=== PATIENT | male | born 1970 | race Hispanic/Latino ===

== ENCOUNTER 2019-12-22 12:15 | Emergency (ER) | payer SELFPAY ==
--- NOTE | 2019-12-22 13:58 | EDPHYS ---
Physician Documentation [facility] Name: Pradeep Maldonado Age: 49 yrs Sex: Male : 1970 Arrival Date: 12/22/2019 Time: 12:17 Bed 17 Private MD: ED Physician Sahil Cash HPI: 12/21 13:43 This 49 yrs old Male presents to ER via Ambulatory with complaints of Facial scott Swelling, Blurred Vision. 13:43 The patient is experiencing burning, cant close right lid. Onset: The symptoms/episode scott began/occurred 5 day(s) ago. Duration: the symptoms are continuous. Aggravated by nothing. Alleviated by nothing. Associated signs and symptoms: Pertinent positives: None. The patient presents to the emergency department with paresthesias of the right side of the face, that is mild, a vision problem, right burning and red. Context: occurred at an unknown location. Associated signs and symptoms: Pertinent positives: paresthesias, weakness, right face weakness, right eye burning. Historical: - Allergies: 13:02 No Known Allergies; ph - PMHx: 13:02 None; ph - PSHx: 13:02 foot; ph - Immunization history:: Adult Immunizations unknown. - Social history:: Smoking status: Patient/guardian denies using tobacco, the patient reports quitting approximately 15 years ago. ROS: 13:46 Constitutional: Negative for fever, chills, and weight loss, ENT: Negative for injury, scott pain, and discharge, Neck: Negative for injury, pain, and swelling, Cardiovascular: Negative for chest pain, palpitations, and edema, Respiratory: Negative for shortness of breath, cough, wheezing, and pleuritic chest pain, Abdomen/GI: Negative for abdominal pain, nausea, vomiting, diarrhea, and constipation, Back: Negative for injury and pain, : Negative for injury, bleeding, discharge, and swelling, MS/Extremity: Negative for injury and deformity, Psych: Negative for depression, anxiety, suicide ideation, homicidal ideation, and hallucinations, Allergy/Immunology: Negative for hives, rash, and allergies, Endocrine: Negative for neck swelling, polydipsia, polyuria, polyphagia, and marked weight changes. 13:46 Eyes: Positive for redness, of the outer aspect of conjuctiva of right eye, iris of right eye and inner aspect of conjuctiva of right eye. 13:46 Skin: Positive for left face pimples, mild erythema. Exam: 13:46 Constitutional: This is a well developed, well nourished patient who is awake, alert, scott and in no acute distress. Eyes: Pupils equal round and reactive to light, extra-ocular motions intact. Lids and lashes normal. Conjunctiva and sclera are non-icteric and not injected. Cornea within normal limits. Periorbital areas with no swelling, redness, or edema. ENT: Nares patent. No nasal discharge, no septal abnormalities noted. Tympanic membranes are normal and external auditory canals are clear. Oropharynx with no redness, swelling, or masses, exudates, or evidence of obstruction, uvula midline. Mucous membranes moist. Neck: Trachea midline, no thyromegaly or masses palpated, and no cervical lymphadenopathy. Supple, full range of motion without nuchal rigidity, or vertebral point tenderness. No Meningismus. Chest/axilla: Normal chest wall appearance and motion. Nontender with no deformity. No lesions are appreciated. Cardiovascular: Regular rate and rhythm with a normal S1 and S2. No gallops, murmurs, or rubs. Normal PMI, no JVD. No pulse deficits. Respiratory: Lungs have equal breath sounds bilaterally, clear to auscultation and percussion. No rales, rhonchi or wheezes noted. No increased work of breathing, no retractions or nasal flaring. Abdomen/GI: Soft, non-tender, with normal bowel sounds. No distension or tympany. No guarding or rebound. No evidence of tenderness throughout. Back: No spinal tenderness. No costovertebral tenderness. Full range of motion. Male : Normal genitalia with no discharge or lesions. MS/ Extremity: Pulses equal, no cyanosis. Neurovascular intact. Full, normal range of motion. Psych: Awake, alert, with orientation to person, place and time. Behavior, mood, and affect are within normal limits. 13:46 Head/face: Noted is swelling, that is mild, of the left jaw, tenderness, that is mild, of the left jaw. 13:46 Neuro: Orientation: is normal, appropriate for stated age, no acute changes, Mentation: is normal, appropriate for stated age, no acute changes, Cranial nerves: facial droop noted on right, with forehead involved. Cerebellar function: is grossly normal, is grossly normal based on the patient's age, no acute changes, Motor: moves all fours, Sensation: no obvious gross deficits, appropriate no acute changes, Gait: is steady, appropriate for age, Babinski testing is normal, seizure activity, is not displayed by the patient. Vital Signs: 12:59 BP 185 / 101; Pulse 77; Resp 18; Temp 97.9; Pulse Ox 99% on R/A; Height 5 ft. 10 in. ph (177.80 cm); 14:18 BP 171 / 91; Pulse 70; Resp 17; ll1 MDM: 13:22 Patient medically screened. scott 13:49 Differential diagnosis: Corneal abrasion of Corneal ulcer of allergic reaction, scott cellulitis, insect bite. Data reviewed: vital signs, nurses notes. Data interpreted: case monitor: rate is 77 beats/min, Pulse oximetry: on room air is 99 %. Counseling: I had a detailed discussion with the patient and/or guardian regarding: the historical points, exam findings, and any diagnostic results supporting the discharge/admit diagnosis, the need for outpatient follow up, for definitive care, a neurologist. 12/21 14:04 Order name: Glucose, Ancillary Testing EDNY 12/21 13:42 Order name: Blood Glucose Level; Complete Time: 13:57 [facility] Administered Medications: 13:57 Drug: Bactrim (160 mg-800 mg (DS) 1 tablet Route: PO; ll1 14:17 Follow up: Response: No adverse reaction; RASS: Alert and Calm (0) ll1 13:57 Drug: Valtrex 1000 mg Route: PO; ll1 14:17 Follow up: Response: No adverse reaction; RASS: Alert and Calm (0) ll1 13:57 Drug: predniSONE 60 mg Route: PO; ll1 14:17 Follow up: Response: No adverse reaction; RASS: Alert and Calm (0) ll1 Disposition: 12/22/19 13:57 Discharged to Home. Impression: Mireles's palsy, Cellulitis and acute lymphangitis of face - mild. - Condition is Stable. - Discharge Instructions: Mireles Palsy, Adult, Cellulitis, Adult, Cellulitis, Adult, [id number]. - Prescriptions for Artificial Tears - place 2 drop by OPHTHALMIC route 8 times per day; 15 milliliter. Valtrex 1 g Oral Tablet - take 1 tablet by ORAL route every 8 hours for 7 days; 21 tablet. Bactrim DS 800- 160 mg Oral Tablet - take 1 tablet by ORAL route every 12 hours for 10 days; 20 tablet. Prednisone 20 mg Oral Tablet - take 2 tablet by ORAL route once daily for 5 days; 10 tablet. - Medication Reconciliation Form, Thank You Letter, Antibiotic Education, Prescription Opioid Use form. - Follow up: Private Physician; When: 2 - 3 days; Reason: Recheck today's complaints, Continuance of care, Re-evaluation by your physician. Follow up: Stefano Khan MD; When: 2 - 3 days; Reason: Recheck today's complaints, Re-evaluation by your physician. - Problem is new. - Symptoms have improved. Signatures: Dispatcher [employer] EDSahil Tineo MD MD cha Hall, Patricia, RN RN Hyacinth Blackburn RN RN ll1 Corrections: (The following items were deleted from the chart) 14:18 13:57 12/22/2019 13:57 Discharged to Home. Impression: Mireles's palsy; Cellulitis and ll1 acute lymphangitis of face - mild. Condition is Stable. Forms are Medication Reconciliation Form, Thank You Letter, Antibiotic Education, Prescription Opioid Use. Follow up: Private Physician; When: 2 - 3 days; Reason: Recheck today's complaints, Continuance of care, Re-evaluation by your physician. Follow up: Stefano Khan; When: 2 - 3 days; Reason: Recheck today's complaints, Re-evaluation by your physician. Problem is new. Symptoms have improved. scott
--- NOTE | 2019-12-22 13:58 | ER ---
Nurse's Notes [facility] Name: Pradeep Maldonado Age: 49 yrs Sex: Male : 1970 Arrival Date: 12/22/2019 Time: 12:17 Bed 17 Private MD: Diagnosis: Mireles's palsy;Cellulitis and acute lymphangitis of face-mild Presentation: 12/21 12:59 Chief complaint: Patient states: Drooping to R side of face, blurred vision and ph watering to R eye, rash to back of neck and L side of face, began "a few days ago", denies weakness to extremities, gait steady. Coronavirus screen: Patient denies a cough. Patient denies shortness of breath or difficulty breathing. Patient denies measured and/or subjective temperature greater than 100.4F prior to today's visit. Patient denies travel on a cruise ship or to a country the [facility] currently lists as an affected area. Patient denies contact with known and/or suspected case of COVID-19. Proceed with normal triage. Ebola Screen: No symptoms or risks identified at this time. Initial Sepsis Screen: Does the patient meet any 2 criteria? No. Patient's initial sepsis screen is negative. Does the patient have a suspected source of infection? No. Patient's initial sepsis screen is negative. Risk Assessment: Do you want to hurt yourself or someone else? Patient reports no desire to harm self or others. Onset of symptoms was December 22, 2019. 12:59 Method Of Arrival: Ambulatory ph 12:59 Acuity: ASHWINI 3 ph Historical: - Allergies: 13:02 No Known Allergies; ph - PMHx: 13:02 None; ph - PSHx: 13:02 foot; ph - Immunization history:: Adult Immunizations unknown. - Social history:: Smoking status: Patient/guardian denies using tobacco, the patient reports quitting approximately 15 years ago. Screenin:13 Abuse screen: Denies threats or abuse. Nutritional screening: No deficits noted. ll1 Tuberculosis screening: No symptoms or risk factors identified. Fall Risk None identified. Total Holland Fall Scale indicates No Risk (0-24 pts). Assessment: 14:12 General: Appears in no apparent distress. Behavior is calm, cooperative. Pain: Denies ll1 pain. Neuro: Level of Consciousness is awake, alert, obeys commands, Oriented to person, place, time, situation, Appropriate for age Recruiting Administrator are equal bilaterally Moves all extremities. Full function Gait is steady, Speech is normal, Facial droop on right, Pupils are PERRLA, Reports paresthesias right sided facial numbness. Cardiovascular: No deficits noted. Respiratory: No deficits noted. GI: No deficits noted. Derm: Skin is pink, warm \\T\\ dry. Skin temperature is warm Rash noted that is on neck/left face Reports rash to neck and left side of face. Vital Signs: 12:59 BP 185 / 101; Pulse 77; Resp 18; Temp 97.9; Pulse Ox 99% on R/A; Height 5 ft. 10 in. ph (177.80 cm); 14:18 BP 171 / 91; Pulse 70; Resp 17; ll1 ED Course: 12:17 Patient arrived in ED. fj1 12:20 Sahil Cash MD is Attending Physician. scott 13:01 Triage completed. ph 13:02 Arm band placed on Patient placed in waiting room, Patient notified of wait time. ph 13:56 Stefano Khan MD is Referral Physician. scott 14:11 Hyacinth Blackburn, GEM[facility] is Primary Nurse. ll1 14:14 Patient has correct armband on for positive identification. Bed in low position. Call ll1 light in reach. Side rails up X 1. Cardiac monitoring not applicable on this patient. 14:18 No provider procedures requiring assistance completed. Patient did not have IV access ll1 during this emergency room visit. Administered Medications: 13:57 Drug: Bactrim (160 mg-800 mg (DS) 1 tablet Route: PO; ll1 14:17 Follow up: Response: No adverse reaction; RASS: Alert and Calm (0) ll1 13:57 Drug: Valtrex 1000 mg Route: PO; ll1 14:17 Follow up: Response: No adverse reaction; RASS: Alert and Calm (0) ll1 13:57 Drug: predniSONE 60 mg Route: PO; ll1 14:17 Follow up: Response: No adverse reaction; RASS: Alert and Calm (0) ll1 Outcome: 13:57 Discharge ordered by . scott 14:18 Discharged to home ambulatory. ll1 14:18 Condition: stable 14:18 Discharge instructions given to patient, Instructed on discharge instructions, follow up and referral plans. medication usage, Demonstrated understanding of instructions, follow-up care, medications, Prescriptions given X 4. 14:18 Patient left the ED. ll1 Signatures: Sahil Cash MD MD cha Hall, Patricia RN RN Gael Lewis [facility] Hyacinth Blackburn RN RN ll1
[2019-12-22] MEDS ORDERED: predniSONE 20 MG TAB ONE (14:01)
[2019-12-22] MEDS ORDERED: VALACYCLOVIR 500 MG TAB ONE (14:01)
[2019-12-22] MEDS ORDERED: SMZ./TMP. 800/160 MG TABLET ONE (14:01)
[2019-12-22 14:31] VITALS: TEMP 97.9; O2SAT 99
[2019-12-22 14:34] VITALS: BP 171/91
== END 2019-12-22 14:18 | disposition home or self-care (01) ==
LOC: ER 12:15
DX: G51.0 Bell's palsy (principal); L03.211 Cellulitis of face; L03.212 Acute lymphangitis of face
CPT/HCPCS: 82947; 99283; J7512